=== PATIENT | female | born 1955 | race African-American/Black ===

== ENCOUNTER 2024-11-26 09:50 | Inpatient (IN) | payer BC, MEDICARE ==
[~2024-11-26] VITALS: Ht 167.6 cm; Wt 85.3 kg
[2024-11-26] MEDS: METOCLOPRAMIDE HCL 10MG/2ML VIAL IV ONE (10:35)
[2024-11-26] MEDS: LABETALOL 5MG/ML 4ML INJ IV ONE (10:35)
[2024-11-26 10:40] LABS: BASOPHILS % 0.5 % (0.0-2.0); DIFFERENTIAL COMMENT 0; EOSINOPHILS % 0.8 % (0.0-5.0); HEMOGLOBIN. 12.7 g/dL (12.0-16.0); LYMPHOCYTES % 14.7 % (20.0-50.0); MEAN CORPUSCULAR HEMOGLOBIN 33.1 pg (28.0-32.0); MEAN CORPUSCULAR HGB CONC 32.5 g/dL (31.0-37.0); MEAN CORPUSCULAR VOLUME 101.9 fL (81.0-99.0); MEAN PLATELET VOLUME 9.6 fl (7.4-10.4); MONOCYTES % 7.1 % (2.0-8.0); NEUTROPHILS % 76.9 % (40.0-76.0); PLATELET 289 x1000/uL (130-400); RED BLOOD CELL COUNT 3.83 mill/uL (4.2-5.4); RED CELL DISTRIBUTION WIDTH 15.4 % (11.6-14.6); WHITE BLOOD COUNT 10.6 x1000/uL (4.5-11.0)
[2024-11-26 10:50] LABS: CALCIUM 9.4 mg/dL (8.7-10.4); CARBON DIOXIDE 24 mEq/L (21-32); CHLORIDE 105 mEq/L (98-107); POTASSIUM 3.6 mEq/L (3.5-5.1); SODIUM 140 mEq/L (136-145)
[2024-11-26 10:55] LABS: CREATININE 1.5 mg/dL (0.6-1.0)
[2024-11-26 10:56] LABS: GLUCOSE 159 mg/dL (70-105); TROPONIN I HIGH SENSITIVITY 7 ng/L (3.0-34); UREA NITROGEN BLOOD 23 mg/dL (9-23)
[2024-11-26 11:56] LABS: INR 1.1; PROTHROMBIN TIME 11.4 sec (9.6-11.0)
[2024-11-26] MEDS: IOHEXOL-350 100 ML BOTTLE ONE (12:03)
[2024-11-26] MEDS ORDERED: SENNOSIDES 8.6MG TABLET PO PRN (13:00)
[2024-11-26] MEDS: HYDRALAZINE 20MG/ML VIAL IV ONE (13:00)
[2024-11-26] MEDS ORDERED: CARVEDILOL 6.25 MG TABLET PO SCH (13:00)
[2024-11-26] MEDS: KETOROLAC 15MG/ML VIAL IV ONE (13:29)
[2024-11-26] MEDS: MAGNESIUM 2 G PREMIX 50 ML IV ONE (13:29)
[2024-11-26] MEDS ORDERED: DEXTROSE 50% WATER 50ML SYRINGE IV PRN (15:00)
[2024-11-26] MEDS ORDERED: LORAZEPAM 0.5MG TABLET PO PRN (15:00)
[2024-11-26] MEDS ORDERED: DOCUSATE SODIUM 100MG CAPSULE PO PRN (15:00)
[2024-11-26] MEDS ORDERED: GUAIFENESIN 200MG/10ML SUGAR FREE UDC PO PRN (15:00)
[2024-11-26] MEDS ORDERED: ONDANSETRON HCL 4MG/2ML INJ IV PRN (15:00)
[2024-11-26] MEDS ORDERED: IPRATROPIUM/ALBUTEROL 0.5-3(2.5)MG/3ML NEB HHN PRN (15:00)
[2024-11-26] MEDS ORDERED: CLONIDINE 0.1MG TABLET PO PRN (15:00)
[2024-11-26] MEDS ORDERED: HYDRALAZINE 20MG/ML VIAL IV PRN (15:00)
[2024-11-26] MEDS ORDERED: ACETAMINOPHEN 325MG TABLET PO PRN ×2 (15:00)
[2024-11-26 15:56] VITALS: BP 169/95; PULSE 87; RESP 20; TEMP 36.5
[2024-11-26] MEDS ORDERED: OMEG-221 PO (16:15)
[2024-11-26] MEDS ORDERED: ATOR20TA65 PO (16:16)
[2024-11-26] MEDS ORDERED: COR12 MT (16:17)
[2024-11-26] MEDS ORDERED: ESCI5SOL2 PO (16:18)
[2024-11-26] MEDS ORDERED: SPIR50TA5 PO (16:19)
[2024-11-26] MEDS ORDERED: LINA290C MT (16:20)
[2024-11-26] MEDS ORDERED: HYDR25TA78 PO (16:21)
[2024-11-26] MEDS ORDERED: SERT25TA PO (16:22)
[2024-11-26] MEDS: BLOOD SUGAR DIAGNOSTIC STRIP TEST SCH (17:10)
[2024-11-26] MEDS: INSULIN LISPRO 100 UNITS/ML SUBCUT SCH (17:20)
[2024-11-26] MEDS: NIFEDIPINE XL 60MG TAB PO SCH (17:37)
[2024-11-26] MEDS: SPIRONOLACTONE 25MG TABLET PO SCH (17:37)
[2024-11-26 18:02] LABS: T4 FREE 0.97 ng/dL (0.89-1.76)
[2024-11-26 18:03] LABS: THYROID STIMULATING HORMONE 58.32 uIU/mL (0.55-4.78)
[2024-11-26 18:26] VITALS: BP 168/94; PULSE 86; RESP 20; TEMP 36.6; O2SAT 97
[2024-11-26 20:00] VITALS: BP 154/85; PULSE 101; RESP 18; TEMP 36.9; O2SAT 98
[2024-11-26] MEDS ORDERED: CLONIDINE 0.1MG TABLET PO SCH (21:00)
[2024-11-26] MEDS: POLYETHYLENE GLYCOL 3350 (17GM) 1 DOSE PACK PO SCH (21:18)
[2024-11-26] MEDS: ENOXAPARIN 40MG/0.4ML SYR SUBCUT SCH (21:19)
[2024-11-26] MEDS: CLONIDINE 0.1MG TABLET PO SCH (21:21)
[2024-11-26] MEDS: ATORVASTATIN CALCIUM 20MG TABLET PO SCH (21:21)
[2024-11-26] MEDS: CARVEDILOL 12.5MG TABLET PO SCH (21:22)
[2024-11-26] MEDS: HYDRALAZINE HCL 25MG TABLET PO SCH (21:22)
[2024-11-27] VITALS: BP 100/60; PULSE 75; RESP 18; TEMP 36.3; O2SAT 97
[2024-11-27] MEDS: PANTOPRAZOLE 40MG DR TABLET PO SCH (07:03)
[2024-11-27] MEDS: LEVOTHYROXINE SODIUM 150MCG TABLET PO SCH (07:03)
[2024-11-27 08:00] VITALS: BP 133/75; PULSE 66; RESP 20; TEMP 36.5; O2SAT 100
[2024-11-27] MEDS: SERTRALINE HCL 25MG TABLET PO SCH (09:16)
[2024-11-27] MEDS: LOSARTAN 100 MG TABLET PO SCH (09:17)
[2024-11-27 12:00] VITALS: BP 106/59; PULSE 62; RESP 18; TEMP 36.9; O2SAT 99
[2024-11-27 12:01] LABS: BASOPHILS % 0.5 % (0.0-2.0); DIFFERENTIAL COMMENT 0; HEMATOCRIT. 38.6 % (36.0-48.0); HEMOGLOBIN. 12.5 g/dL (12.0-16.0); LYMPHOCYTES % 17.5 % (20.0-50.0); MEAN CORPUSCULAR HEMOGLOBIN 32.8 pg (28.0-32.0); MEAN CORPUSCULAR HGB CONC 32.4 g/dL (31.0-37.0); MEAN CORPUSCULAR VOLUME 101.3 fL (81.0-99.0); MEAN PLATELET VOLUME 9.4 fl (7.4-10.4); MONOCYTES % 8.9 % (2.0-8.0); NEUTROPHILS % 72.1 % (40.0-76.0); PLATELET 244 x1000/uL (130-400); RED BLOOD CELL COUNT 3.81 mill/uL (4.2-5.4); RED CELL DISTRIBUTION WIDTH 15.7 % (11.6-14.6); WHITE BLOOD COUNT 8.7 x1000/uL (4.5-11.0)
[2024-11-27 12:13] LABS: CARBON DIOXIDE 25 mEq/L (21-32); CHLORIDE 107 mEq/L (98-107); POTASSIUM 3.5 mEq/L (3.5-5.1); SODIUM 143 mEq/L (136-145)
[2024-11-27 12:14] LABS: CALCIUM 9.3 mg/dL (8.7-10.4)
[2024-11-27 12:19] LABS: CREATININE 1.4 mg/dL (0.6-1.0); GLUCOSE 175 mg/dL (70-105); UREA NITROGEN BLOOD 17 mg/dL (9-23)
[2024-11-27 12:21] LABS: PHOSPHORUS 2.8 mg/dL (2.5-4.9)
[2024-11-27 13:30] LABS: CLARITY URINE TURBID (CLEAR); COLOR URINE YELLOW (YELLOW); GLUCOSE URINE NEGATIVE (NEGATIVE); KETONES URINE NEGATIVE (NEGATIVE); LEUKOCYTE ESTERASE URINE 1+ (NEGATIVE); NITRITE URINE NEGATIVE (NEGATIVE); OCCULT BLOOD URINE NEGATIVE (NEGATIVE); PROTEIN URINE TRACE (NEGATIVE); SPECIFIC GRAVITY URINE 1.024 (1.005-1.030)
[2024-11-27 13:39] LABS: BACTERIA URINE 2+; RBC URINE 0-2 /hpf (0-2); SQUAMOUS EPITHELIAL CELL URINE 2+ /lpf (RARE/1+); YEAST URINE NONE SEEN
[2024-11-27 16:00] VITALS: BP 116/70; PULSE 65; RESP 18; TEMP 36.6; O2SAT 97
[2024-11-27 20:00] VITALS: BP_SYST 103; BP_SYST 130; BP_DIAS 67; BP_DIAS 73; PULSE 71; RESP 18; TEMP 36.6; O2SAT 97
[2024-11-27] MEDS: CARVEDILOL 12.5MG TABLET PO SCH (21:00)
[2024-11-28] VITALS: BP 121/69; PULSE 73; RESP 18; TEMP 36.7; O2SAT 97
[2024-11-28 04:00] VITALS: BP 148/81; PULSE 74; RESP 18; TEMP 36.5; O2SAT 96
[2024-11-28 08:00] VITALS: BP 148/82; PULSE 104; RESP 18; TEMP 36.4; O2SAT 98
[2024-11-28 08:25] LABS: BASOPHILS % 0.4 % (0.0-2.0); DIFFERENTIAL COMMENT 0; EOSINOPHILS % 1.6 % (0.0-5.0); LYMPHOCYTES % 19.4 % (20.0-50.0); MEAN CORPUSCULAR HGB CONC 32.6 g/dL (31.0-37.0); MEAN CORPUSCULAR VOLUME 101.1 fL (81.0-99.0); MEAN PLATELET VOLUME 9.5 fl (7.4-10.4); MONOCYTES % 11.2 % (2.0-8.0); NEUTROPHILS % 67.4 % (40.0-76.0); PLATELET 271 x1000/uL (130-400); RED BLOOD CELL COUNT 3.95 mill/uL (4.2-5.4); RED CELL DISTRIBUTION WIDTH 15.8 % (11.6-14.6); WHITE BLOOD COUNT 10.2 x1000/uL (4.5-11.0)
[2024-11-28 08:34] LABS: POTASSIUM 3.7 mEq/L (3.5-5.1)
[2024-11-28 08:35] LABS: CALCIUM 9.4 mg/dL (8.7-10.4)
[2024-11-28 08:40] LABS: CREATININE 1.3 mg/dL (0.6-1.0)
[2024-11-28] MEDS: NIFEDIPINE XL 90MG TAB PO SCH (09:11)
[2024-11-28] MEDS: SPIRONOLACTONE 25MG TABLET PO SCH (09:12)
[2024-11-28] MEDS ORDERED: ALD50 MT (11:09)
[2024-11-28] MEDS ORDERED: CARV25TA47 MT (11:09)
[2024-11-28] MEDS ORDERED: LOSA100T33 MT (11:09)
[2024-11-28] MEDS ORDERED: NIFE90TA60 MT (11:09)
[2024-11-28] MEDS ORDERED: CLON0.2T MT (11:09)
[2024-11-28] MEDS ORDERED: HYDR25TA78 MT (11:09)
[2024-11-28 12:00] VITALS: BP 124/76; PULSE 73; RESP 18; TEMP 36.6
[2024-11-28 13:27] VITALS: BP 124/76; PULSE 73; TEMP 97.8; O2SAT 95
== END 2024-11-28 15:10 | disposition home or self-care (01) | DRG 305 ==
LOC: ER 09:50 → 8WST 13:45 → EDBEDREQ 13:47 → EDBEDREQTM 13:47
PROVIDERS: ADMIT Internal Medicine; ATTEND Internal Medicine
DX: I16.1 Hypertensive emergency (principal); I50.22 Chronic systolic (congestive) heart failure; I13.0 Hypertensive heart and chronic kidney disease with heart failure and stage 1 through stage 4 chronic kidney disease, or unspecified chronic kidney disease; E89.0 Postprocedural hypothyroidism; N18.32 Chronic kidney disease, stage 3b; E11.22 Type 2 diabetes mellitus with diabetic chronic kidney disease; K21.9 Gastro-esophageal reflux disease without esophagitis; D72.829 Elevated white blood cell count, unspecified; E78.00 Pure hypercholesterolemia, unspecified; F41.9 Anxiety disorder, unspecified; Z79.4 Long term (current) use of insulin; Z79.899 Other long term (current) drug therapy; Z85.850 Personal history of malignant neoplasm of thyroid; Z87.11 Personal history of peptic ulcer disease; Z90.710 Acquired absence of both cervix and uterus; Z80.3 Family history of malignant neoplasm of breast; Z82.49 Family history of ischemic heart disease and other diseases of the circulatory system; Z83.3 Family history of diabetes mellitus
CPT/HCPCS: 36415; 70496; 70498; 80048; 80061; 81003; 82962; 83036; 83735; 83880; 84100; 84439; 84443; 84484; 85025; 86850; 86900; 93005; 97161; 97165; 99291; J0360; J1650; J1815; J1885; J2765; J3475; J3490; Q9967